=== PATIENT | female | born 1945 | race Two or more races ===

== ENCOUNTER 2023-10-28 09:16 | Day surgery (SDC) | payer MEDICARE, OTHER ==
[~2023-10-28 09:16] MED LIST: LIDOCAINE 1% (10MG/ML) FOR IV START INTRADERMA PRN; TETRACAINE 0.5% OPHTH (PF) DROPS 4 ML BTL OP PRN
[2023-10-28] MEDS: CYCLOPENTOLATE 1% OPHTH SOLN 2 ML BTL OP PRN (09:58)
[2023-10-28] MEDS: LACTATED RINGERS 1,000 ML IV SCH (10:00)
[2023-10-28] MEDS: PHENYLEPHRINE 2.5% OPHTH DRP 2ML OP PRN (10:01)
[2023-10-28] MEDS: IV FLUID CONTINUATION 1,000 ML IV ONE (10:02)
[2023-10-28 10:12] VITALS: TEMP 98.6
[2023-10-28] MEDS: MIDAZOLAM 2 MG/2 ML VIAL IV ONE (10:19)
[2023-10-28] MEDS ORDERED: MIDAZOLAM 2 MG/2 ML VIAL ONE (10:29)
[2023-10-28] MEDS ORDERED: fentaNYL (PF) 50 MCG/ML 2 ML AMP ONE (10:29)
[2023-10-28] MEDS: EPINEPHrine (PF) 0.3 ML in BALANCED SALT IRRIG SOLN COMB2 500 ML IRRIGATION ONE (10:37)
[2023-10-28] MEDS: LIDOCAINE 1% (PF) 10MG/ML VIAL MISCELLANE ONE (10:41)
[2023-10-28] MEDS: DUOVISC KIT (GREEN BOX) INTRAOCULA ONE (10:41)
[2023-10-28] MEDS: BALANCED SALT IRRIG SOLN COMB2 15 ML IRRIG.SOLN IRRIGATION ONE (10:41)
[2023-10-28] MEDS: MOXIFLOXACIN HCL 0.5% DROPS 3 ML BTL OP PRN (10:42)
[2023-10-28] MEDS: TIMOLOL 0.5% OPHTH DROPS 5 ML BTL OP PRN (10:42)
[2023-10-28] MEDS: ATROPINE OPHTH SOLN 1% 5ML BTL OPHTHALMIC PRN (10:43)
--- NOTE | 2023-10-28 11:16 | P.OP ---
Date of Procedure: 10/28/23 Preoperative Diagnosis: NS & CS reg astig Postoperative Diagnosis: same Procedure(s) Performed: PIOL< OD Implants: [id number] 21.00 Anesthesia: MAC Surgeon: Myke Murphy Pathology: none sent Condition: stable Disposition: same day Indications for Procedure: blurry vision Operative Findings: no complications
[2023-10-28 11:37] VITALS: BP 151/82; PULSE 64; RESP 15
--- NOTE | 2023-11-04 15:21 | OP ---
OPERATIVE REPORT DATE OF SERVICE : 10/28/2023 PROCEDURE PERFORMED: Phacoemulsification of cataract and intraocular lens implant of the right eye. PREOPERATIVE DIAGNOSES: Nuclear sclerosis, cortical sclerosis, and regular astigmatism. POSTOPERATIVE DIAGNOSES: Nuclear sclerosis, cortical sclerosis, and regular astigmatism. ANESTHESIA: Topical. ESTIMATED BLOOD LOSS: None. SPECIMEN TAKEN: None. NARRATIVE: After obtaining the appropriate consent, the patient was brought to the operating room, there she was placed under cardiac monitoring, prepped and draped in the usual sterile manner. She was approached from her right temporal side using previously acquired corneal topography information, the axis of 3 degrees was identified and marked with a [employer] axis marker. Additionally, a 5.5 mm Aaliyah ring was placed centrally over the Purkinje reflex. At the 11 o'clock position, an MVR blade was used to create a paracentesis port. Through this opening, 1% Xylocaine MPF 50:50 mix with balanced salt solution was injected into the anterior chamber. This was followed by stabilization of the anterior chamber with Viscoat. At the 9 o'clock position, a 2.75 mm ian keratome was used to create a self-sealing corneal flap incision in a Langerman's fashion. Through this opening, a cystotome was introduced to begin a continuous tear capsulorrhexis which was completed using the Utrata forceps. Care was taken to ensure that the size of the rhexis was at least the size of the previously placed jennifer on the patient's central cornea. Hydrodissection and hydrodelineation of the lens were accomplished with balanced salt solution. Phacoemulsification of the lens utilizing phaco chop was accomplished in 44.08 seconds at 13.8% power. Additional Xylocaine MPF was instilled into the anterior chamber. This was followed by removal of the remaining cortical material under irrigation and aspiration as well as careful polishing of the posterior capsule in the capsule vacuum mode. Provisc was then used to stabilize the capsular bag and using both Rizwana and Pepose capsule polishers, the entire 360 degree of the underside of the anterior capsular leaflet was scrubbed for any remaining cortical lens debris. The temporal incision was then enlarged slightly with the keratome and a [employer] Trulign toric model [id number], 21.0 diopter posterior chamber intraocular lens was then inserted into the capsular bag without difficulty. The lens was rotated manually to ensure no residual cortical material remained in the angle. This was followed by removal of the viscoelastic from in and around the intraocular lens as well as the anterior chamber. The final adjustment of the position of the intraocular lens was in alignment with a 3 degree axis previously placed on the patient's cornea. The eye was then brought to normal intraocular pressure through the paracentesis port. The wounds were dried with Weck-Riana sponges and Tisseel was used to ensure wound closure through the paracentesis as well as the temporal incision. Approximately 90 seconds later, the patient then received 2 drops of 0.5% timolol, 2 drops of 0.5% moxifloxacin and 2 drops of 1% atropine. She was then lightly patched and shielded in the usual manner. There were no complications from the procedure. She tolerated the procedure well and was returned to outpatient recovery in good condition. MMBASSEML / IJN: [id number] /
== END 2023-10-28 11:51 | disposition home or self-care (01) ==
LOC: OR 09:16
PROVIDERS: ATTEND Ophthalmology
DX: H25.11 Age-related nuclear cataract, right eye (principal); H25.011 Cortical age-related cataract, right eye; Z98.890 Other specified postprocedural states

== ENCOUNTER 2023-11-25 07:28 | Day surgery (SDC) | payer MEDICARE, OTHER ==
[~2023-11-25 07:28] MED LIST changes: +DEXAMETHASONE SOD PHOSPHATE 4 MG/ML 1 ML VIAL IV ONE; -LIDOCAINE 1% (10MG/ML) FOR IV START INTRADERMA PRN; +fentaNYL (PF) 50 MCG/ML 2 ML AMP IV PRN
[2023-11-25 08:08] VITALS: RESP 18; TEMP 97.7
[2023-11-25] MEDS: PHENYLEPHRINE 2.5% OPHTH DRP 2ML OP PRN (08:10)
[2023-11-25] MEDS: CYCLOPENTOLATE 1% OPHTH SOLN 2 ML BTL OP PRN (08:13)
[2023-11-25] MEDS: IV FLUID CONTINUATION 1,000 ML IV ONE ×2 (08:16→08:53)
[2023-11-25] MEDS: LACTATED RINGERS 1,000 ML IV SCH (08:17)
[2023-11-25] MEDS ORDERED: MIDAZOLAM 2 MG/2 ML VIAL ONE (08:47)
[2023-11-25] MEDS: EPINEPHrine (PF) 0.3 ML in BALANCED SALT IRRIG SOLN COMB2 500 ML IRRIGATION ONE (09:10)
[2023-11-25] MEDS: HYALURONATE SODIUM INTRAOCULAR 1 EACH SYRINGE (12MG/ML) INTRAOCULA ONE (09:11)
[2023-11-25] MEDS: TIMOLOL 0.5% OPHTH DROPS 5 ML BTL OP PRN (09:12)
[2023-11-25] MEDS: MOXIFLOXACIN HCL 0.5% DROPS 3 ML BTL OP PRN (09:12)
[2023-11-25] MEDS: ATROPINE OPHTH SOLN 1% 5ML BTL OPHTHALMIC PRN (09:12)
[2023-11-25] MEDS: LIDOCAINE 1% (PF) 10MG/ML VIAL MISCELLANE ONE (09:12)
[2023-11-25] MEDS: BALANCED SALT IRRIG SOLN COMB2 15 ML IRRIG.SOLN INTRAOCULA ONE (09:12)
--- NOTE | 2023-11-25 09:35 | P.OP ---
Date of Procedure: 11/25/23 Preoperative Diagnosis: NS & CS Postoperative Diagnosis: same Procedure(s) Performed: PIOL, OS Implants: [id number] 21.50 Anesthesia: MAC Surgeon: Myke Murphy Pathology: none sent Condition: stable Disposition: same day Indications for Procedure: blurry vision Operative Findings: no complications
[2023-11-25 09:55] VITALS: BP 172/83; PULSE 64
--- NOTE | 2023-11-26 14:49 | OP ---
OPERATIVE REPORT DATE OF SERVICE : 11/25/2023 PROCEDURE: Phacoemulsification of cataract and intraocular lens implant, left eye. PREOPERATIVE DIAGNOSES: Nuclear sclerosis, cortical sclerosis, and regular astigmatism. POSTOPERATIVE DIAGNOSES: Nuclear sclerosis, cortical sclerosis, and regular astigmatism. ANESTHESIA: Topical. ESTIMATED BLOOD LOSS: None. SPECIMEN TAKEN: None. NARRATIVE: After obtaining the appropriate consent, the patient was brought to the operating room, there she was placed under cardiac monitoring, prepped and draped in the usual sterile manner. She was approached from her left temporal side and using previously acquired corneal topography information, the axis of 176 degrees was identified and marked with a [employer] axis marker. A 5.5 mm Aaliyah ring was placed centrally over the Purkinje reflex on the patient's cornea. At the 5 o'clock position, an MVR blade was used to create a paracentesis port. Through this opening, 1% Xylocaine MPF 50:50 mix with balanced salt solution was injected into the anterior chamber. This was followed by stabilization of the anterior chamber with Amvisc. At the 3 o'clock position, a 2.75 mm ian keratome was used to create a self-sealing corneal flap incision in Langerman's fashion. Through this opening, a cystotome was introduced to begin a continuous tear capsulorrhexis, which was completed using the Utrata forceps. Care was taken to ensure the size of the rhexis was within the guidelines of the previously placed Aaliyah ring jennifer on the patient's cornea. Hydrodissection and hydrodelineation of the lens were accomplished with balanced salt solution. Phacoemulsification lens utilizing phaco chop was accomplished in 47.91 seconds at 19.7% power. Additional lidocaine MPF was instilled into the anterior chamber. This was followed by removal of all the remaining cortical material under irrigation and aspiration as well as careful polishing in the posterior capsule in capsule vacuum mode. Additional Amvisc was used to stabilize the capsular bag. Temporal incision was enlarged slightly with keratome and using both Rizwana and pappose anterior capsular polishers, the entire 360 degrees of the capsular bag was cleaned of all remaining lens material. This was followed by placement of a Bausch and Lomb Trulign toric model [id number], 21.5 diopter posterior chamber intraocular lens into the capsular bag. The lens was able to be moved freely both with Sinskey hook as well as under irrigation and after removal of all the remaining viscoelastic from in and around the intraocular lens, the lens was realigned with the 176 degree jennifer previously placed on the patient's cornea. The eye was then brought to normal intraocular pressure through the paracentesis port and to ensure watertight integrity, Tisseel was placed over the wounds to stabilize early healing. The patient then received 2 drops of 0.5% timolol followed by 2 drops of 0.5% moxifloxacin and 2 drops of 1% atropine. She was then lightly patched and shielded in the usual manner. There were no complications from the procedure. She tolerated the procedure well and returned to outpatient recovery in good condition. MMTAMI / IJN: [id number] /
== END 2023-11-25 10:17 | disposition home or self-care (01) ==
LOC: OR 07:28
PROVIDERS: ATTEND Ophthalmology
DX: H25.12 Age-related nuclear cataract, left eye (principal); H25.012 Cortical age-related cataract, left eye; H52.222 Regular astigmatism, left eye; Z96.1 Presence of intraocular lens; Z98.41 Cataract extraction status, right eye